=== PATIENT | male | born 1955 | race Caucasian/White ===

== ENCOUNTER 2016-06-20 09:54 | Inpatient (IN) | payer BC, MEDICAID ==
--- NOTE | 2016-06-20 10:01 | EDPHY ---
H & P Time Seen by Provider: 06/20/16 09:59 HPI/ROS: CHIEF COMPLAINT: Fever, neck pain HISTORY OF PRESENT ILLNESS: The patient presents to the ED for evaluation of fever and neck pain. The patient's pain is in the cervical area. He has had some migration of the pain to the lower lumbar spine. The patient denies any acute numbness or weakness. He complains of a mild frontal headache. The patient has no history of bacteremia. The patient does report he has a history of having a superficial staph infection treated with oral and topical antibiotics approximately 1 month ago. The patient denies significant past medical history aside from chronic pain from a right leg injury. REVIEW OF SYSTEMS: A comprehensive 10 point review of systems is otherwise negative aside from elements mentioned in the history of present illness. Source: Patient Exam Limitations: No limitations - Family History Significant Family History: No pertinent family hx - Social History Smoking Status: Never smoked - Physical Exam Exam: General Appearance: Alert, no distress Head: Atraumatic Eyes: Pupils equal, round, reactive ENT, Mouth: No hemotympanum, no oral trauma Neck: No meningeal symptoms Respiratory: No chest wall tender, subcutaneous air, lungs clear bilaterally Cardiovascular: Regular rate and rhythm Abdomen: Abdomen is soft and nontender, pelvis stable Skin: No lacerations, No abrasion Back: No midline T/L/S pain Extremities: Nontender, full range of motion Constitutional: Initial Vital Signs Temperature (C) 38.7 C H 06/20/16 10:02 Heart Rate 90 06/20/16 10:02 Respiratory Rate 16 06/20/16 10:02 Blood Pressure 146/73 H 06/20/16 10:02 O2 Sat (%) 94 06/20/16 10:02 O2 Delivery Mode Room Air Allergies/Adverse Reactions: No Known Allergies Allergy (Verified 06/20/16 10:05) Home Medications: Medication Instructions Recorded NK [No Known Home Meds] 06/20/16 Medical Decision Making ED Course/Re-evaluation: The patient presents to the ED with complaints of fever, cervical and lumbar pain for the past 10 days. The patient initially attributed his symptoms to sleep in an awkward position however when they persisted and progressed to his lumbar spine he became concerned. The patient noted subjective fevers over the past day. He denies any IV drug use. He did have a reported history of a staph skin infection approximately a month ago. In the ED, the patient is noted not to have meningeal symptoms however is febrile. He complains of a bandlike pain across his lumbar spine as well as some discomfort in his lower cervical spine. The patient did receive IV Ativan and we did attempt to get an MRI of his CT and L-spine without success secondary to anxiety. The patient does feel he will require significant sedation to undergo this procedure. The patient is noted to have a significantly elevated CRP. The patient has not had any symptoms of cough or congestion. He denies rhinorrhea or sore throat. He has no complaints of dysuria. He has no obvious clinical explanation for his fever. I do feel the patient requires admission for evaluation of diskitis. Consultation was made with Dr. De Luna from the hospitalist service. The patient did have blood cultures obtained in the emergency department. The patient has not received IV antibiotics. The patient is noted to be neurologically intact without evidence of a spinal cord lesion clinically. Differential Diagnosis: Differential diagnosis considered includes viral syndrome, influenza, spinal diskitis, spinal epidural abscess - Data Points Laboratory Results: Laboratory Results 06/20/16 10:15 06/20/16 10:15 06/20/16 06/20/16 10:20 10:15 WBC 13.57 H 10^3/uL (3.80-9.50) RBC 5.37 10^6/uL (4.40-6.38) Hgb 16.0 g/dL (13.7-17.5) Hct 45.9 % (40.0-51.0) MCV 85.5 fL (81.5-99.8) MCH 29.8 pg (27.9-34.1) MCHC 34.9 g/dL (32.4-36.7) RDW 13.8 % (11.5-15.2) Plt Count 300 10^3/uL (150-400) MPV 9.4 fL (8.7-11.7) Neut % (Auto) 84.3 H % (39.3-74.2) Lymph % (Auto) 5.3 L % (15.0-45.0) Stevens % (Auto) 9.4 % (4.5-13.0) Eos % (Auto) 0.1 L % (0.6-7.6) Baso % (Auto) 0.4 % (0.3-1.7) Nucleat RBC Rel Count 0.0 % (0.0-0.2) Absolute Neuts (auto) 11.43 H 10^3/uL (1.70-6.50) Absolute Lymphs (auto) 0.72 L 10^3/uL (1.00-3.00) Absolute Monos (auto) 1.28 H 10^3/uL (0.30-0.80) Absolute Eos (auto) 0.02 L 10^3/uL (0.03-0.40) Absolute Basos (auto) 0.05 10^3/uL (0.02-0.10) Absolute Nucleated RBC 0.00 10^3/uL (0-0.01) Immature Gran % 0.5 % (0.0-1.1) Immature Gran # 0.07 10^3/uL (0.00-0.10) ESR 15 MM/HR (0-20) VBG Lactic Acid 1.1 mmol/L (0.7-2.1) Sodium 137 mEq/L (134-144) Potassium 3.9 mEq/L (3.5-5.2) Chloride 99 mEq/L (97-110) Carbon Dioxide 22 mEq/l (22-31) Anion Gap 16 mEq/L (8-16) BUN 17 mg/dL (7-23) Creatinine 0.8 mg/dL (0.7-1.3) Estimated GFR > 60 Glucose 113 H mg/dL (70-100) Calcium 9.9 mg/dL (8.5-10.4) C-Reactive Protein 172.3 H mg/L (<10.0) Influenza A & B (PCR) NEGATIVE FOR FLU (NEGATIVE) Medications Given: Discontinued Medications Sodium Chloride (Ns) 1,000 mls @ 0 mls/hr IV ONCE ONE PRN Reason: Wide Open Stop: 06/20/16 10:08 Last Admin: 06/20/16 10:22 Dose: 1,000 mls Lorazepam (Ativan Injection) 1 mg IVP EDNOW ONE Stop: 06/20/16 11:35 Last Admin: 06/20/16 11:41 Dose: 1 mg Departure - Departure Disposition: [facility] Acute Clinical Impression: Fever, Back pain Condition: Good
[2016-06-20] MEDS ORDERED: NS 1,000 ML IV ONE (10:07)
[2016-06-20 10:24] LABS: % IMMATURE GRANULYOCYTES 0.5 % (0.0-1.1); ABSOLUTE IMMATURE GRANULOCYTES 0.07 10^3/uL (0.00-0.10); ADD DIFF? NO; ADD MORPH? NO; ADD SCAN? NO; ATYPICAL LYMPHOCYTE FLAG 0 (0-99); FRAGMENT RBC FLAG 0 (0-99); HEMATOCRIT 45.9 % (40.0-51.0); LEFT SHIFT FLG 0 (0-99); LIPEMIA HEMOLYSIS FLAG 90 (0-99); MEAN CELL HEMOGLOBIN 29.8 pg (27.9-34.1); MEAN CELL HEMOGLOBIN CONCENTR. 34.9 g/dL (32.4-36.7); MEAN CELL VOLUME 85.5 fL (81.5-99.8); MEAN PLATELET VOLUME 9.4 fL (8.7-11.7); PLATELET CLUMPS FLAG 0 (0-99); PLATELET COUNT 300 10^3/uL (150-400); RED BLOOD CELL COUNT 5.37 10^6/uL (4.40-6.38); RED CELL DISTRIBUTION WIDTH 13.8 % (11.5-15.2)
[2016-06-20] MEDS ORDERED: GADOBUTROL 10 ML VIAL IVP ONE (10:40)
[2016-06-20 10:41] LABS: ANION GAP 16 mEq/L (8-16); CALCIUM 9.9 mg/dL (8.5-10.4); CARBON DIOXIDE 22 mEq/l (22-31); CHLORIDE 99 mEq/L (97-110); CREATININE 0.8 mg/dL (0.7-1.3); GLOMERULAR FILTRATION RATE > 60; GLUCOSE 113 mg/dL (70-100); POTASSIUM 3.9 mEq/L (3.5-5.2); SODIUM 137 mEq/L (134-144)
[2016-06-20 10:47] LABS: SEDIMENTATION RATE 15 MM/HR (0-20)
[2016-06-20 11:15] LABS: C-REACTIVE PROTEIN 172.3 mg/L (<10.0)
[2016-06-20] MEDS ORDERED: LORazepam 2 MG/ML INJ IVP ONE (11:34)
[2016-06-20] MEDS ORDERED: ONDANSETRON 4 MG/2 ML VIAL IVP PRN (15:32)
[2016-06-20] MEDS ORDERED: ONDANSETRON DISINTEGRATING 4 MG TAB PO PRN (15:32)
[2016-06-20] MEDS ORDERED: HYDROCODONE/APAP 5/325 TAB PO PRN (15:33)
[2016-06-20] MEDS ORDERED: D5W 1/2 NS W/ 20 KCl/L 1,000 ML IV SCH (15:45)
--- NOTE | 2016-06-20 16:05 | GHP ---
[f rep st] HISTORY AND PHYSICAL DATE OF ADMISSION: 06/20/2016 CHIEF COMPLAINT: Neck and back pain. HISTORY OF PRESENT ILLNESS: This is a 60-year-old male with no significant past medical history. He states that over the last week he has been having fever which he has not measured, but he is also chinchilla ving significant cervical neck pain. He is also having lower lumbar pain and pain radiating from his back to his flanks bilaterally. This is not usual for him. He does admit to some lower extremity w eakness. No numbness or tingling. He has not had anything like this before. About a month ago, he did have some dermatitis around his ears that he put Neosporin on, which then he is allergic to. He then went to a braided band assembler and took what seems to be an antibiotic, as well as topical creams, and they have resolved. Denies any bowel or bladder symptoms. He also admits to headache which is const ant. He denies any photophobia. REVIEW OF SYSTEMS: A 10-point review of systems was obtained and, other than as stated above, was julio estes. PAST MEDICAL HISTORY: None. PAST SURGICAL HISTORY: Right lower extremity accident with repair of his tib-fib. SOCIAL HISTORY: No smoking, no alcohol, does smoke marijuana. FAMILY HISTORY: Reviewed and noncontributory to create current complaint. PHYSICAL EXAM: VITAL SIGNS: Temperature is elevated at 38.7, blood pressure 132/88, heart rate is 9 6, oxygen saturation 91% on room air. GENERAL: The patient is well developed, in no apparent distre ss. HEENT: Nonicteric sclerae. Extraocular movements intact. Moist mucous membranes. NECK: Supp le. No thyromegaly. There is no cervical tenderness. LUNGS: Good effort. Clear to auscultation b ilaterally. CARDIOVASCULAR: Regular rate and rhythm. No murmurs or gallops. ABDOMEN: Positive chyna wel sounds. Soft, nontender, nondistended. No hepatosplenomegaly. EXTREMITIES: No clubbing, cyano sis, or edema. SKIN: There is no rash. Multiple tattoos. NEUROLOGIC: Alert x3. He has 5/5 stren gth in his lower extremities. His reflexes are somewhat diminished in the right patella. PSYCH: No rmal mood and affect. LABS: White blood cell count is elevated at 13, platelets are 16. Chemistry is normal with a CRP of 172. Influenza is negative. ASSESSMENT: This is a 60-year-old male complaining of back pain and fever. PLAN: Epidural abscesses need to be ruled out. He was unable to tolerate MRI. He will need conscio us sedation. I have discussed the case with Radiology and they will attempt to get this done later t zamzam. In the meantime, blood cultures have been drawn and I will start him on vancomycin and Invanz empirically. Other possibilities would be myalgias due to viral syndrome. /[id number]/MODL
[2016-06-20] MEDS: ERTAPENEM 1 GM in NS 100 ML IV SCH (17:09)
[2016-06-20] MEDS: VANCOMYCIN 750 MG in D5W 150 ML IV SCH (17:49)
[2016-06-20] MEDS: ACETAMINOPHEN 325 MG TAB PO PRN ×2 (17:56→21:32)
[2016-06-21 04:53] LABS: % IMMATURE GRANULYOCYTES 0.3 % (0.0-1.1); ABSOLUTE IMMATURE GRANULOCYTES 0.03 10^3/uL (0.00-0.10); ADD DIFF? NO; ADD MORPH? NO; ADD SCAN? NO; ATYPICAL LYMPHOCYTE FLAG 10 (0-99); FRAGMENT RBC FLAG 0 (0-99); HEMATOCRIT 42.8 % (40.0-51.0); HEMOGLOBIN 14.4 g/dL (13.7-17.5); LEFT SHIFT FLG 0 (0-99); LIPEMIA HEMOLYSIS FLAG 80 (0-99); MEAN CELL HEMOGLOBIN CONCENTR. 33.6 g/dL (32.4-36.7); MEAN CELL VOLUME 89.2 fL (81.5-99.8); MEAN PLATELET VOLUME 9.5 fL (8.7-11.7); PLATELET CLUMPS FLAG 0 (0-99); PLATELET COUNT 254 10^3/uL (150-400); RED CELL DISTRIBUTION WIDTH 13.7 % (11.5-15.2)
[2016-06-21 05:09] LABS: INR 1.24 (0.83-1.16); PROTIME(PATIENT) 15.6 SEC (12.0-15.0)
[2016-06-21 05:10] LABS: APTT 33.8 SEC (23.0-38.0)
[2016-06-21 05:27] LABS: ALANINE AMINOTRANSFERASE 31 IU/L (21-72); ALBUMIN 3.4 g/dL (3.5-5.0); ALKALINE PHOSPHATASE 65 IU/L (38-126); ANION GAP 10 mEq/L (8-16); ASPARTATE AMINOTRANSFERASE 17 IU/L (17-59); BILIRUBIN,TOTAL 1.3 mg/dL (0.1-1.4); CALCIUM 8.8 mg/dL (8.5-10.4); CARBON DIOXIDE 27 mEq/l (22-31); CHLORIDE 104 mEq/L (97-110); CREATININE 0.6 mg/dL (0.7-1.3); GLOMERULAR FILTRATION RATE > 60; GLUCOSE 101 mg/dL (70-100); SODIUM 141 mEq/L (134-144); TOTAL PROTEIN 6.1 g/dL (6.3-8.2)
[2016-06-21] MEDS: ACETAMINOPHEN 325 MG TAB PO PRN ×3 (05:49→20:28)
[2016-06-21] MEDS: VANCOMYCIN 750 MG in D5W 150 ML IV SCH ×2 (05:49→18:01)
[2016-06-21] MEDS: ERTAPENEM 1 GM in NS 100 ML IV SCH (08:11)
[2016-06-21] MEDS ORDERED: DIAZEPAM 10 MG/2 ML SYR IVP ONE (09:43)
--- NOTE | 2016-06-21 09:51 | HOSPPROG ---
Hospitalist Progress Note Assessment/Plan: ASSESSMENT/PLAN: # fever, back pain, elevated inflammatory markers: Certainly concerning for epidural abscess - needs MRI, he is very claustrophobic; change this to a stat order; will need to include all the way from his coccyx to his cervical spine in MRIs - will either need conscious sedation or general anesthesia to get MRI - follow blood cultures # reported MRSA soft tissue in sinus infection - he is on isolation # hold on dvt ppx pending diagnosis # FCFT SUBJECTIVE: Back pain is better today OBJECTIVE: Vitals reviewed Comfortable, no acute distress Regular rate and rhythm, no murmurs rubs or gallops No respiratory distress, lungs clear to auscultation bilaterally; no wheezes rales or rhonchi Abdomen with normal bowel sounds, soft, nontender, nondistended Tail bone with mild area of dark erythema, no fluctuance, not significantly tender to palpation LABORATORY DATA: White count normalized overnight CRP 172 IMAGING: MRI ordered, pending MICROBIOLOGY: Blood cultures no growth today Objective: Vital Signs Temp Pulse Resp BP Pulse Ox 36.6 C 76 16 103/65 94 06/21/16 08:00 06/21/16 08:00 06/21/16 08:00 06/21/16 08:00 06/21/16 08:00 Laboratory Results 06/21/16 04:43 06/21/16 04:43 06/20/16 06/21/16 06/22/16 05:59 05:59 05:59 Intake Total 400 Output Total 1110 150 Balance -710 -150 PT 15.6 SEC (12.0-15.0) H 06/21/16 04:43 INR 1.24 (0.83-1.16) H 06/21/16 04:43 ICD10 Worksheet Patient Problems: Problems Problem Status Diagnosed Back pain Acute Fever Acute MRSA (methicillin resistant Staphylococcus aureus) Acute 05/15/16
[2016-06-21] MEDS ORDERED: PROPOFOL/EMULSION 500 MG/50 ML BOTTLE IV ONE (11:06)
[2016-06-21] MEDS ORDERED: GADOBUTROL 10 ML VIAL IVP ONE (13:34)
--- NOTE | 2016-06-21 15:59 | MR ---
MRI Cervical Spine (Without and With Contrast) 1216 hours History: Fever and back pain. Technique: Sagittal T1, T2 and axial T1, T2 MR sequences of the cervical spine without contrast. Post contrast sagittal and axial T1-weighted sequences obtained with the uneventful intravenous administra tion of 6.5 mL Gadavist. General anesthesia was utilized secondary to severe claustrophobia. Findings: Cervical vertebral bodies are normal in height, signal intensity and alignment without c ompression fractures or spondylolisthesis. Cerebellar tonsils are in normal position. Cervical spina l cord demonstrates normal signal without cord edema or myelomalacia. On postcontrast imaging there i s some patchy enhancement that is projected posteriorly that is in a pattern most likely secondary to wrap around artifact. C2-C3: Normal. C3-C4: Moderate to marked degenerative disk disease with desiccation and loss of disk height. There i s moderate diffuse disk bulge that along with posterior bar formation contributes to severe spinal st enosis. There is uncovertebral hypertrophy on the left and left-sided facet hypertrophy with moderate left-sided neuroforaminal stenosis. Mild enhancement is present at this disk level probably from taylor e underlying inflammation. Endplates are intact without secondary findings to suggest diskitis. C4-C5: Mild desiccation and loss of disk height. There is mild diffuse disk bulge is slightly more pr ominent right paracentral with mild to moderate spinal stenosis. There is bilateral neural foraminal stenosis moderate on the right and mild to moderate on the left. C5-C6: Moderate degenerative disease with desiccation and loss of disk height. There is mild to moder ate diffuse disk bulge that abuts the interim margin of the cervical spinal cord with moderate spinal stenosis and bilateral neural foraminal stenosis. C6-C7: Marked degenerative disk disease with desiccation and loss of disk height. There is mild to mo derate diffuse disk bulge that abuts the interim margin of the cervical spinal cord with mild to mode rate spinal stenosis and bilateral neural foraminal stenosis moderate on the right and mild to modera te on the left. C7-T1: Moderate to marked degenerative disk disease with desiccation and loss of disk height. Is mild to moderate disk bulge that causes compression upon the anterior dural sac without compression upon the spinal cord. There is mild spinal stenosis. There is bilateral neuroforaminal stenosis moderate o n the right and mild to moderate on the left secondary to disk bulge and osteophyte. T1-T2 and T2-T3: Normal T3-T4 and T4-T5: Mild diffuse disk bulge without significant consequences. Impression: 1. Multilevel degenerative disk disease with disk bulges and posterior bar formation with findings mo st prominent at C3-C4 as detailed above. 2. No significant enhancement following contrast administration. 3. Increased signal on postcontrast sagittal imaging within the region of the posterior fossa that pr obably represents artifact. Please see findings at additional disk levels.
--- NOTE | 2016-06-21 16:10 | MR ---
MRI of the Thoracic Spine (Without and with Contrast) 1300 hours Reason for examination: Back pain and fever. Elevated CRP. Technique: Sagittal T1, FSE T2 2nd echo with fat suppression and STIR imaging. Axial T1 and FSE T2 2n d echo imaging with fat suppression. Postcontrast T1 axial and with fat saturation sagittal imaging w as obtained through the thoracic spine after the administration of 6.5 mL Gadovist IV contrast. Gener al anesthesia was utilized secondary to severe claustrophobia. Findings: Thoracic alignment is anatomic. Mild disk bulges are noted at T4-T5, T5-T6, T7-T8, T8-T9, and T9-T10 without consequences. There is no spinal or neuroforaminal stenoses appreciated. The thora cic neural canal is normal in size. The thoracic cord looks normal. No abnormal enhancement is identi fied following contrast administration. The conus medullaris occurs at T12-L1. Thoracic foramen are w idely patent. Impression: 1. Mild disk bulges mid thoracic spine from T4-T5 through T9-T10 without significant consequences. 2. Normal appearance of the thoracic spinal cord. 3. No abnormal enhancement identified..
--- NOTE | 2016-06-21 16:18 | MR ---
MRI of the Lumbar Spine (Without and With Contrast) 1343 hours Clinical Indications: Back pain. Fever. Elevated CRP levels.. Technique: Sagittal and axial T1 and T2 MR sequences of the lumbar spine without contrast. Axial i maging from T12 through S1. Post contrast sagittal and axial T1-weighted images with the uneventful i ntravenous administration of 6.5 mL of Gadavist also performed. Findings: Lumbar vertebral bodies are of normal height without compression fractures. Conus medulla ris appears normal and ends at L1. Bone marrow signal is normal. No abnormal enhancing lesions are s een. There is a mild edema in the posterior paraspinal soft tissues more prominent along the right-si de from L4 to L5 levels possibly from muscle strain or myositis. There is a dominant cyst lower pole right kidney measuring about 4.5 cm. Smaller cysts are seen elsewhere associated with each kidney. T12-L1: No disk herniation or stenosis. L1-L2: Mild desiccation with minimal loss of disk height. There is mild diffuse disk bulge causing mi ld compression upon the dural sac without significant spinal stenosis. There is mild left-sided neura l foraminal stenosis secondary to disk bulge. L2-L3: Mild desiccation and loss of disk height. There is mild diffuse disk bulge with prominence rig ht paracentral to posterior lateral. There is associated mild spinal stenosis and mild to moderate bi lateral neural foraminal stenosis secondary to disk bulge. L3-L4: Mild desiccation without loss of disk height. There is mild diffuse disk bulge with prominence right posterior laterally. There is no spinal stenosis. There is moderate right-sided neuroforaminal stenosis. L4-L5: Mild desiccation without loss of disk height. There is mild to moderate diffuse disk bulge cau sing compression upon the anterior dural sac and mild spinal stenosis. Disk bulge along with facet hy pertrophy more prominent on the left contributes to bilateral neural foraminal stenosis moderate to s evere on the left and moderate on the right. L5-S1: No disk herniation or stenosis. Impression: 1. Edema in the right posterior paraspinal musculature study from L4 to L5 compatible with myositis o r muscle strain.. 2. Multilevel disk bulges with associated facet hypertrophy most prominent at L4-L5 as detailed above . 3. No significant abnormal enhancement seen associated with the lumbar spine. Please see findings at specific disk levels.
--- NOTE | 2016-06-21 17:45 | DX ---
PA and Lateral Chest June 21, 2016 17:18 Indication: Hypoxia. Comparison: MRI thoracic spine performed 4 hours prior. Findings: The lungs are clear except for minimal peribronchial thickening and minimal posterior basil ar atelectasis. Trace bilateral pleural effusions blunt costophrenic angles on the lateral view. No e macy or airspace consolidation. Heart size normal. Impression: 1. Mild bronchitis and trace bilateral pleural effusions. 2. No pneumonia.
[2016-06-21 17:47] LABS: COLOR YELLOW; LEUKOCYTE ESTERASE,URINE NEGATIVE (NEGATIVE); NITRITE,URINE NEGATIVE (NEGATIVE)
[2016-06-22] MEDS: VANCOMYCIN 750 MG in D5W 150 ML IV SCH ×2 (04:47→06:33)
[2016-06-22] MEDS: ACETAMINOPHEN 325 MG TAB PO PRN ×2 (04:48→16:22)
[2016-06-22 05:16] LABS: % IMMATURE GRANULYOCYTES 0.4 % (0.0-1.1); ABSOLUTE IMMATURE GRANULOCYTES 0.03 10^3/uL (0.00-0.10); ADD DIFF? NO; ADD MORPH? NO; ADD SCAN? NO; ATYPICAL LYMPHOCYTE FLAG 20 (0-99); FRAGMENT RBC FLAG 0 (0-99); HEMATOCRIT 41.4 % (40.0-51.0); HEMOGLOBIN 14.1 g/dL (13.7-17.5); LEFT SHIFT FLG 0 (0-99); LIPEMIA HEMOLYSIS FLAG 90 (0-99); MEAN CELL HEMOGLOBIN 30.3 pg (27.9-34.1); MEAN CELL HEMOGLOBIN CONCENTR. 34.1 g/dL (32.4-36.7); MEAN CELL VOLUME 88.8 fL (81.5-99.8); PLATELET CLUMPS FLAG 0 (0-99); PLATELET COUNT 292 10^3/uL (150-400); RED BLOOD CELL COUNT 4.66 10^6/uL (4.40-6.38); RED CELL DISTRIBUTION WIDTH 13.6 % (11.5-15.2)
[2016-06-22 05:24] LABS: ANION GAP 8 mEq/L (8-16); CALCIUM 8.8 mg/dL (8.5-10.4); CARBON DIOXIDE 26 mEq/l (22-31); CHLORIDE 106 mEq/L (97-110); CREATININE 0.7 mg/dL (0.7-1.3); GLOMERULAR FILTRATION RATE > 60; GLUCOSE 92 mg/dL (70-100); POTASSIUM 4.4 mEq/L (3.5-5.2); SODIUM 140 mEq/L (134-144)
[2016-06-22] MEDS ORDERED: VANCOMYCIN HCL/NORMAL SALINE 250 ML IV SCH (06:00)
[2016-06-22 07:36] VITALS: O2SAT 93
[2016-06-22] MEDS: ERTAPENEM 1 GM in NS 100 ML IV SCH (08:30)
--- NOTE | 2016-06-22 08:58 | HOSPPROG ---
Hospitalist Progress Note Assessment/Plan: #Fever: none for 48 hrs -bld cultures negative -imaging without acute abscess in spine -No PNA, negative flu, urine #Back pain -no spinal abscess -mild myositis. CK negative Disp: DC today. Needs to establish PCP Subjective: min back pain today Objective: Vital Signs Temp Pulse Resp BP Pulse Ox 36.6 C 69 14 87/53 L 93 06/22/16 07:35 06/22/16 07:35 06/22/16 07:35 06/22/16 07:35 06/22/16 07:35 Laboratory Results 06/22/16 04:28 06/22/16 04:28 06/21/16 06/22/16 06/23/16 05:59 05:59 05:59 Intake Total 400 900 280 Output Total 1110 450 Balance -710 450 280 PT 15.6 SEC (12.0-15.0) H 06/21/16 04:43 INR 1.24 (0.83-1.16) H 06/21/16 04:43 - Physical Exam Constitutional: no apparent distress Eyes: PERRL Ears, Nose, Mouth, Throat: moist mucous membranes, hearing normal Cardiovascular: regular rate and rhythym, no murmur, rub, or gallop Respiratory: no respiratory distress, no rales or rhonchi Gastrointestinal: normoactive bowel sounds, soft, non-tender abdomen Genitourinary: no bladder fullness Skin: warm, normal color, no rashes or abrasions Musculoskeletal: full muscle strength, no muscle tenderness, normal joint ROM, other (no joint TTP or swelling. On TTP over C/T/L spine) Neurologic: AAOx3, sensation intact bilaterally, CN II-XII Intact Psychiatric: interacting appropriately Lymph, Heme, Immunologic: no cervical LAD ICD10 Worksheet Patient Problems: Problems Problem Status Diagnosed Back pain Acute Fever Acute MRSA (methicillin resistant Staphylococcus aureus) Acute 05/15/16
[2016-06-22] MEDS ORDERED: NS 1,000 ML IV ONE (09:19)
[2016-06-22 15:05] VITALS: BP 104/70; PULSE 78; RESP 16; TEMP 98.8
--- NOTE | 2016-06-22 15:30 | GDS ---
[f rep st] DISCHARGE SUMMARY DISCHARGE DIAGNOSES: 1. Fever. 2. Lumbar back pain. 3. Neck pain. HPI: Patient is a 60-year-old male with no past significant medical history, presented with subjective fevers and significant cervical neck pain. He also had some lower lumbar pain that radiated from his back to his flanks bilaterally. This was unusual for him. He denied any numbness or tingling. He had never had anything like this before. He does have a history of a staph skin infection on his buttocks. Patient was admitted for concern of an epidural abscess. ASSESSMENT AND PLAN: 1. Fever: 38.2 was the highest temperature here, unclear etiology. Patient has had extensive workup that has been negative thus far. Lumbar, cervical, and thoracic spine MRI that were negative for abscess. Showed some mild myositis. However, RF, SOREN, and CK were all negative. UA and chest x-ray, flu swab negative. He has been afebrile now for 48 hours. Could possibly have been a viral etiology. Patient was advised to return to the hospital with recurrent fevers. 2. Cervical/lumbar pain: There was initial concern of abscess given fevers and back pain. Imaging showed edema in the right posterior paraspinal musculature at L4-L5, which could be compatible for myositis or strain. There was no evidence of abscess. As stated above SOREN, CK, and RF were all negative. He does have evidence of multilevel disk bulges. Would recommend followup with his PCP if this pain persists. He is ambulating without issue. 3. Healthcare maintenance: Patient just moved here from [place] a few months ago. Recommended that he call [facility] to determine which PCP he could establish care with here. DISPOSITION: Patient is stable for discharge. MEDICATIONS: No new medications. INSTRUCTIONS: Patient was advised to return to hospital if he has progressive back pain or recurrent fevers. /[id number]/MODL MTDD
== END 2016-06-22 16:45 | disposition home or self-care (01) | DRG 864 ==
LOC: EDUNIT# → F3N 13:27 → OBSVTOIN 15:32
PROVIDERS: ADMIT Internal Medicine; ATTEND Internal Medicine
DX: R50.9 Fever, unspecified (principal); M60.88 Other myositis, other site; M48.02 Spinal stenosis, cervical region; M48.06 Spinal stenosis, lumbar region; M48.03 Spinal stenosis, cervicothoracic region; R51 Headache; Z86.14 Personal history of Methicillin resistant Staphylococcus aureus infection
CPT/HCPCS: 96374; 97165-GO; A9585; J1335; J2704; J3370

== ENCOUNTER → 2017-03-04 | Outpatient (CLI) | payer MEDICAID | LOC: FIMAGING 13:39 | PROVIDERS: ATTEND Registered Nurse | DX: M79.89 Other specified soft tissue disorders (principal) ==